=== PATIENT | female | born 1960 | race Caucasian/White ===

== ENCOUNTER → 2018-12-06 | Outpatient (REF) | payer BC ==
[2018-12-09 14:09] LABS: HPV HYBRID CAPTURE II Negative (Negative)
== END ==
LOC: M LAB LCGH 12:05
PROVIDERS: ATTEND Obstetrics & Gynecology
DX: Z12.4 Encounter for screening for malignant neoplasm of cervix (principal)
CPT/HCPCS: 87624; G0123

== ENCOUNTER → 2024-02-10 | Outpatient (REF) | payer BC, MEDICARE | LOC: M SFHCDERM 17:38 | PROVIDERS: ATTEND Physician Assistant | DX: C44.310 Basal cell carcinoma of skin of unspecified parts of face (principal) ==